=== PATIENT | male | born 2000 | race Two or more races ===

== ENCOUNTER 2022-11-16 18:48 | Emergency (ER) | payer OTHER ==
[~2022-11-16] VITALS: Ht 185.4 cm; Wt 66.2 kg
[2022-11-17 05:19] VITALS: BP 139/79
== END 2022-11-17 05:20 | disposition home or self-care (01) ==
LOC: ER 18:48
DX: S62.012A Displaced fracture of distal pole of navicular [scaphoid] bone of left wrist, initial encounter for closed fracture (principal); S52.502A Unspecified fracture of the lower end of left radius, initial encounter for closed fracture; S42.022A Displaced fracture of shaft of left clavicle, initial encounter for closed fracture; V86.56XA Driver of dirt bike or motor/cross bike injured in nontraffic accident, initial encounter; Y93.55 Activity, bike riding; Y92.89 Other specified places as the place of occurrence of the external cause; Y99.8 Other external cause status
CPT/HCPCS: 29105; 73000; 73110